=== PATIENT | female | born 2000 | race American Indian/Alaskan Native ===

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

== ENCOUNTER 2022-01-15 23:24 | Emergency (ER) | payer MEDICAID ==
[2022-01-15 23:46] VITALS: BP 123/71
== END 2022-01-16 01:40 | disposition left against medical advice (07) ==
LOC: ED 23:24
DX: A05.9 Bacterial foodborne intoxication, unspecified (principal); Z53.21 Procedure and treatment not carried out due to patient leaving prior to being seen by health care provider